=== PATIENT | male | born 1980 | race Caucasian/White ===

== ENCOUNTER 2016-12-20 11:14 | Emergency (ER) | payer BC ==
[2016-12-20] MEDS ORDERED: Adacel Vial IM ONE ×2 (11:32→11:46)
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
--- NOTE | 2016-12-20 12:00 | XRAY ---
Indication: Pain following injury. Comparison: None 3 views of the right knee obtained. No bony, articular, or soft tissue abnormalities.
[2016-12-20 12:24] VITALS: BP 137/73; PULSE 76; O2SAT 100
== END 2016-12-20 12:24 | disposition home or self-care (01) ==
LOC: ED 11:14
DX: S83.91XA Sprain of unspecified site of right knee, initial encounter (principal); S50.311A Abrasion of right elbow, initial encounter; M25.561 Pain in right knee; W17.89XA Other fall from one level to another, initial encounter; Y93.H9 Activity, other involving exterior property and land maintenance, building and construction
CPT/HCPCS: 73562; 90471; 90715; 99283; 99284

== ENCOUNTER 2021-11-09 11:32 | Day surgery (SDC) | payer BC ==
--- NOTE | 2021-11-09 09:25 | HP ---
DATE OF SURGERY: 11/09/2021 HISTORY OF PRESENT ILLNESS: The patient is a 41-year-old with nodule or cyst bilaterally behind both ears that have been going on for four months, increasing in size. Question of ruptured cyst site versus other nodule post-auricular area. I feel the patient will benefit from excision. PAST MEDICAL HISTORY: Hyperlipidemia. PAST SURGICAL HISTORY: He denied any prior surgeries. MEDICATIONS: Ambien, simvastatin, ibuprofen. ALLERGIES: NKDA. FAMILY HISTORY: Cancer, heart disease. SOCIAL HISTORY: One pack per day smoker, reports rare alcohol use. REVIEW OF SYSTEMS: Fourteen systems reviewed. No chest pain or palpitations. Other systems negative or noncontributory as above and per preadmission questionnaire. PHYSICAL EXAMINATION: GENERAL: No acute distress. HEENT: Sclerae nonicteric. In the posterior auricular behind both ears there is question of ruptured cyst site versus other nodule. NECK: No JVD. CHEST: Equal excursion, nonlabored breathing. CVS: Regular rate and rhythm. ABDOMEN: Soft. No peritoneal signs. EXTREMITIES: No significant edema. NEURO: Alert, oriented, moving extremities symmetrically. PSYCH: Appropriate mood and affect. IMPRESSION: Ruptured cyst site or other nodule post-auricular area. I feel the patient will benefit from excisional biopsy. Risks and benefits explained in detail including but not limited to bleeding or infection, risk of aches, pains, burning or numbness possible senior care or chronic in nature. He understands what we excise once he heals the wound likely will not recur but could get similar cyst or nodule adjacent to or elsewhere on his neck, post-auricular area or other areas. As well as general risk of anesthesia, deep venous thrombosis, pulmonary embolism, or pneumonia but not limited to. Consent obtained, will proceed with excisional biopsy of ruptured cyst site or nodule bilateral post-auricular areas.
[~2021-11-09 11:32] MED LIST: Lactated Ringers 1,000 ML IV ONE; Sensorcaine 0.25% 10 ML ONE
[2021-11-09] MEDS ORDERED: CLINDAMYCIN-D5W 900 MG/50 ML*** 900 MG/50 ML BAG IV ONE (11:33)
[2021-11-09] MEDS ORDERED: Lactated Ringers 1,000 ML IV SCH (12:00)
[2021-11-09] MEDS ORDERED: SUBLIMAZE 100 MCG/2 ML ONE ×2 (13:06→13:20)
[2021-11-09] MEDS ORDERED: Versed 2 MG/2 ML Injection ONE (13:06)
[2021-11-09] MEDS ORDERED: DIPRIVAN 200 MG/20 ML IV ONE (13:06)
[2021-11-09] MEDS ORDERED: BACIGUENT 30 GM ONE (13:41)
[2021-11-09 14:57] VITALS: BP 117/81; PULSE 64; O2SAT 98
--- NOTE | 2021-11-10 08:47 | OP ---
SURGERY DATE/TIME: 11/09/2021 1308 PREOPERATIVE DIAGNOSIS: Bilateral ruptured cyst post-auricular area. POSTOPERATIVE DIAGNOSIS: Bilateral ruptured cyst post-auricular area. PROCEDURES: 1) Excisional biopsy of ruptured cyst site left post-auricular area approximately 2 cm with margins including inflammation around it with intermediate closure. 2) Excisional biopsy ruptured cyst site right post-auricular area approximately 1 cm with margins with intermediate closure. SURGEON: Dr. Jose Luis Levine. ANESTHESIA: General. ESTIMATED BLOOD LOSS: Minimal. INDICATIONS: As noted above. Risks and benefits explained in detail and not limited to and consent obtained. The site was confirmed in the preoperative holding area. DESCRIPTION OF PROCEDURE AND FINDINGS: The patient is taken to the operating room. General anesthesia induced. Prepped and draped in the usual sterile fashion. After official time out and no disagreement with planned procedure, starting first on the small area on the right. Dissection carried through skin. A little bit of some pits right next to it. Dissection carried down around this ruptured cyst site and passed off for pathology. The wound is closed with 4-0 Vicryl. The deeper layer, superficial layer closed with interrupted vertical mattress with 5-0 Prolene. Antibiotic ointment and sterile dressing applied. 0.25% Marcaine local injected. Attention is then turned to the left side using clean gloves and instruments. Marked out and around the normal appearing skin around this larger ruptured cyst site. Dissection carried down circumferentially around this ruptured cyst site. It spilled a small amount of material. Otherwise the dissection was carried off the underlying fascia and passed off for pathology. There did not appear to be residual cyst wall material. The wound is irrigated out. It was felt it was worth to try to close this area and have perioperative antibiotics. The wound is irrigated out. Good hemostasis noted. It was closed with interrupted 4-0 Vicryl in the deeper tissues deeper layer. Skin closed with vertical mattress and interrupted 5-0 Prolene, antibiotic ointment and sterile dressing applied. 0.2% Marcaine local had been injected along the area. The patient tolerated the procedure well. There were no immediate complications. There was no family in the waiting room to discuss the findings with.
== END 2021-11-09 15:07 | disposition home or self-care (01) ==
LOC: SDC 11:32
PROVIDERS: ATTEND Surgery
DX: Q18.1 Preauricular sinus and cyst (principal)
CPT/HCPCS: J2250; J2704; J3010; A9270-GY